=== PATIENT | male | born 2000 | race Caucasian/White ===

== ENCOUNTER 2019-07-09 18:51 | Emergency (ER) | payer SELFPAY ==
[~2019-07-09] VITALS: Ht 188.5 cm; Wt 164.0 kg
--- NOTE | 2019-07-09 19:23 | ED Upper Extremity ---
General Chief Complaint: Upper Extremity Stated Complaint: RT HAND INJ Nursing Triage Note: PT AMBULATE TO ROOM FS02 WITH C/O RIGHT HAND PAIN. PT STATES HE "PUNCHED A TAILGATE" TODAY AND APPROX 1600. Nursing Sepsis Screen: No Definite Risk Source: patient, family Exam Limitations: no limitations History of Present Illness Date Seen by Provider: Jul 09, 2019 Time Seen by Provider: 19:12 Initial Comments The patient presents to ER with family and chief complaint that he's having pain and swelling in his right hand over the third metacarpal after punching a tailgate at approximately 1600, 3-1/2 hours prior to arrival. He did not hit anything else and is not having pain anywhere else. He has some limitation in his extension and flexion of his fingers but no numbness or tingling. No previous injury to the hand. No significant medical history and not on blood thinners. Allergies and Home Medications Patient Home Medication List Home Medication List Reviewed: Yes Review of Systems Constitutional: No chills, No diaphoresis EENTM: No ear discharge, No hearing loss Respiratory: No cough, No dyspnea on exertion Past Derntek-Vhvnpu-Tjcgjc Hx Patient Social History Alcohol Use: Rarely Uses Recreational Drug Use: No Smoking Status: Never a Smoker 2nd Hand Smoke Exposure: No Recent Foreign Travel: No Contact w/Someone Who Travel: No Recent Infectious Disease Expo: No Recent Hopitalizations: No Physical Abuse: No Sexual Abuse: No Mistreated: No Fear: No Seasonal Allergies Seasonal Allergies: No Past Medical History Surgeries: No Respiratory: Yes Asthma Cardiac: No Neurological: No Genitourinary: No Gastrointestinal: No Musculoskeletal: Yes (FX COLLAR BONE APPROX 6 YEARS AGO) Fractures Endocrine: No HEENT: No Cancer: No Psychosocial: No Integumentary: No Blood Disorders: No Physical Exam Vital Signs Vital Signs - First Documented 07/09/19 19:06 Temp 36.5 Pulse 103 Resp 20 B/P (MAP) 137/78 (97) O2 Delivery Room Air Capillary Refill : Less Than 3 Seconds Height, Weight, BMI Height: '" Weight: lbs. oz. kg; 46.00 BMI Method: General Appearance: WD/WN, mild distress HEENT: PERRL/EOMI, pharynx normal Neck: full range of motion, normal inspection Cardiovascular: normal peripheral pulses, regular rate, rhythm Respiratory: no respiratory distress, no accessory muscle use Elbow/Forearm: normal inspection, non-tender, no evidence of injury, normal ROM, Right Wrist: Yes normal inspection, Yes non-tender, Yes no evidence of injury, Yes normal ROM Hand: bone tenderness (second third metacarpal), ecchymosis, limited ROM (lacks about 10-15 of extension on his right hand digits and lacks about 30% flexion of the fingers but has full range of motion of his thumb.), swelling (over the third metacarpal dorsally and distally) Neurologic/Tendon: normal sensation, normal motor functions, normal tendon functions, responds to pain Neurologic/Psychiatric: no motor/sensory deficits, alert, normal mood/affect, oriented x 3 Progress/Results/Core Measures Results/Orders My Orders Orders - MASOUD WANG Hand 3 View Right (07/09/19 19:18) Vital Signs/I&O 07/09/19 19:06 Temp 36.5 Pulse 103 Resp 20 B/P (MAP) 137/78 (97) O2 Delivery Room Air Blood Pressure Mean: 97 POS Progress Progress Note : Time: 19:22 Progress Note He has declined anything for pain at this time. We'll give him an ice pack instructed him to hold the limb above the level heart and we'll obtain a 3 view right hand x-ray. Diagnostic Imaging Diagonstic Imaging: Xray Plain Films/CT/US/NM/MRI: hand (3v) Comments No acute osseous abnormality three-view hand x-ray. Reviewed: Reviewed by Me Departure Impression Primary Impression: Traumatic hematoma of hand Qualified Codes: S60.221A - Contusion of right hand, initial encounter Disposition: 01 HOME, SELF-CARE Condition: Stable Departure-Patient Inst. Decision time for Depature: 19:40 Referrals: TRAVIS ANTOINE MD (PCP/Family) Primary Care Physician Patient Instructions: Hand Pain (DC) Add. Discharge Instructions: Keep an Jake bandage wrapped around the hand for compression for the next couple days. Use ice for 20 minutes on the hand every 4 hours for the first 2 days for swelling and pain. Keep the hand elevated above the level of your heart for the next couple days to help reduce swelling. Tylenol 1000 mg every 8 hours as needed for pain. Ibuprofen 800 mg every 8 hours as needed for pain. If you're still having significant pain and swelling at 7-10 days and follow-up with primary care for reevaluation. All discharge instructions reviewed with patient and/or family. Voiced understanding. MASOUD WANG Jul 09, 2019 19:23 POS
--- NOTE | 2019-07-09 19:47 | Diagnostic Imaging Report ---
EXAMINATION: Right hand 3 views HISTORY: Trauma FINDINGS: No comparison available. Alignment is normal. No fracture is seen. Joint spaces are normal. IMPRESSION: 1. No fracture. Dictated by: Dictated on workstation # [id number]
[2019-07-09 19:51] VITALS: BP 142/79
== END 2019-07-09 19:50 | disposition home or self-care (01) ==
LOC: ER FS 18:53
DX: S60.221A Contusion of right hand, initial encounter (principal); J45.909 Unspecified asthma, uncomplicated; W22.8XXA Striking against or struck by other objects, initial encounter
CPT/HCPCS: 73130

== ENCOUNTER 2020-10-12 05:30 | Emergency (ER) | payer OTHER ==
[~2020-10-12] VITALS: Ht 190.5 cm; Wt 166.2 kg
--- NOTE | 2020-10-12 05:42 | ED Head Injury ---
General Chief Complaint: Head/Cervical Problems Stated Complaint: HEAD INJURY History of Present Illness Date Seen by Provider: Oct 12, 2020 Time Seen by Provider: 05:42 Initial Comments 19-year-old male presents with a head injury. Patient was working at [employer] when he had a mat go out from underneath him fell backwards and hit his head. Patient thinks he had a slight loss of consciousness. He complains of headache, dizziness and some nausea. He has no vomiting. He has no other focal weakness. Allergies and Home Medications Allergies Coded Allergies: No Known Drug Allergies (Unverified , 10/12/20) Patient Home Medication List Home Medication List Reviewed: Yes Review of Systems Review of Systems Constitutional: No chills; dizziness; No fever Eyes: Denies Blurred Vision Ears, Nose, Mouth, Throat: no symptoms reported Respiratory: no symptoms reported Cardiovascular: no symptoms reported Gastrointestinal: nausea Genitourinary: no symptoms reported Musculoskeletal: no symptoms reported Skin: no symptoms reported Psychiatric/Neurological: See HPI, Headache Endocrine: No Symptoms Reported Hematologic/Lymphatic: No Symptoms Reported Past Xxfbjjo-Qzbcdl-Kqjktr Hx Past Med/Social Hx: Reviewed Nursing Past Med/Soc Hx Patient Social History 2nd Hand Smoke Exposure: No Recent Hopitalizations: No Seasonal Allergies Seasonal Allergies: No Past Medical History Surgeries: No Respiratory: Yes Asthma Cardiac: No Neurological: No Genitourinary: No Gastrointestinal: No Musculoskeletal: Yes (FX COLLAR BONE APPROX 6 YEARS AGO) Fractures Endocrine: No HEENT: No Cancer: No Psychosocial: No Integumentary: No Blood Disorders: No Physical Exam Vital Signs Vital Signs - First Documented 10/12/20 05:44 Temp 36.7 Pulse 102 Resp 16 B/P (MAP) 151/97 (115) Pulse Ox 97 O2 Delivery Room Air Capillary Refill : Height, Weight, BMI Height: '" Weight: lbs. oz. kg; 46.00 BMI Method: General Appearance: obese HEENT: PERRL/EOMI, normal ENT inspection Neck: non-tender, full range of motion, supple Cardiovascular: normal peripheral pulses, regular rate, rhythm Respiratory: lungs clear, normal breath sounds Gastrointestinal: non tender, soft Psychiatric: alert, oriented x 3, depressed affect Crainal Nerves: normal hearing, normal speech Coordination/Gait: normal gait Motor/Sensory: no motor deficit, no sensory deficit, no pronator drift Skin: normal color, warm/dry Progress/Results/Core Measures Results/Orders My Orders Orders - LOU FRANCE DO Ct Head Wo (10/12/20 05:42) Vital Signs/I&O Progress Progress Note : Progress Note Patient with symptoms consistent with a concussion. CT head shows no acute intracranial findings. Patient stable will be discharged home. Diagnostic Imaging Diagonstic Imaging: CT Plain Films/CT/US/NM/MRI: head Comments [facility] [place], [place] NAME: BALTAZAR RIVERA [facility] REC#: [id number] PT STATUS: REG ER : 2000 PHYSICIAN: LOU FRANCE DO ADMIT DATE: 10/12/20/ER FS Signed Date of Exam:10/12/20 CT HEAD WO PROCEDURE: CT head without contrast. TECHNIQUE: Multiple contiguous axial images were obtained through the brain without the use of intravenous contrast. Auto Exposure Controls were utilized during the CT exam to meet ALARA standards for radiation dose reduction. DATE: October 12, 2020. COMPARISON: None. INDICATION: 19-year-old male, head injury. Loss of consciousness. FINDINGS: The ventricles and cerebral spinal fluid spaces are of normal size and configuration for the patient's age. There is no mass effect or midline shift. There is no acute intracranial hemorrhage. There is no abnormal extra-axial fluid collection. The visualized portions of the paranasal sinuses, mastoid air cells and middle ears are well aerated. IMPRESSION: 1. No identified acute intracranial abnormality. Dictated by: Dictated on workstation # [id number] Dict: 10/12/20 0601 Trans: 10/12/20 0711 THAI [id number] Interpreted by: BYRON WILD MD Electronically signed by: BYRON WILD MD 10/12/20 07 Reviewed: Reviewed by Me, Reviewed/Discussed Departure Impression Primary Impression: Concussion with brief (less than one hour) loss of consciousness Additional Impression: Fall due to wet surface Qualified Codes: W01.0XXA - Fall on same level from slipping, tripping and stumbling without subsequent striking against object, initial encounter Disposition: 01 HOME, SELF-CARE Condition: Stable Departure-Patient Inst. Referrals: TRAVIS ANTOINE MD (PCP/Family) Primary Care Physician Patient Instructions: Concussion in Adults, Headache, Child (DC), Minor Head Injury, Adult ED Add. Discharge Instructions: Tylenol or ibuprofen as needed for pain You may do light duty at work until 10/14/2020 then return to normal duty. If symptoms have not improved with an 5 days, please follow-up with occupational health or your primary care provider. All discharge instructions reviewed with patient and/or family. Voiced understanding. LOU FRANCE DO Oct 12, 2020 05:42
--- NOTE | 2020-10-12 07:04 | Diagnostic Imaging Report ---
PROCEDURE: CT head without contrast. TECHNIQUE: Multiple contiguous axial images were obtained through the brain without the use of intravenous contrast. Auto Exposure Controls were utilized during the CT exam to meet ALARA standards for radiation dose reduction. DATE: October 12, 2020. COMPARISON: None. INDICATION: 19-year-old male, head injury. Loss of consciousness. FINDINGS: The ventricles and cerebral spinal fluid spaces are of normal size and configuration for the patient's age. There is no mass effect or midline shift. There is no acute intracranial hemorrhage. There is no abnormal extra-axial fluid collection. The visualized portions of the paranasal sinuses, mastoid air cells and middle ears are well aerated. IMPRESSION: 1. No identified acute intracranial abnormality. Dictated by: Dictated on workstation # [id number]
[2020-10-12 07:21] VITALS: BP 141/72
== END 2020-10-12 07:21 | disposition home or self-care (01) ==
LOC: EDUNIT# 05:30 → ER FS 05:36
DX: S06.0X1A Concussion with loss of consciousness of 30 minutes or less, initial encounter (principal); E66.9 Obesity, unspecified; Z68.42 Body mass index [BMI] 45.0-49.9, adult; W01.198A Fall on same level from slipping, tripping and stumbling with subsequent striking against other object, initial encounter
CPT/HCPCS: 70450